=== PATIENT | male | born 1950 | race Caucasian/White ===

== ENCOUNTER 2020-11-04 21:17 | Emergency (ER) | payer MEDICARE, MEDICAID, SELFPAY ==
--- NOTE | ~2020-11-04 | CT_ITS ---
EXAMINATION: CT abdomen pelvis wo con DATE: 11/04/2020 22:32 INDICATION: Diarrhea. Abdominal pain. TECHNIQUE: Computed tomography (CT) of the abdomen and pelvis was performed without intravenous contr ast. Automated exposure control and iterative reconstruction technique were employed. The dose-length product was 642.21 mGy-cm. COMPARISON: Abdomen and pelvis 06/01/2005 FINDINGS: The visualized portions of the lung bases demonstrate mild atelectasis. No pleural effusion . The heart size is normal. There are coronary artery calcifications. There are pacer wires in right atrium and right ventricle. No pericardial effusion. Calcifications in the liver and spleen are consi stent with old granulomatous disease. There are cysts in the liver measuring up to [address] is decompressed. The pancreas, adrenal glands, and kidneys are normal. There is no urolithiasis. The prostate is mildly enlarged. There are no dilated loops of bowel. The appendix is normal. There a re no pathologically enlarged lymph nodes. There is no free intraperitoneal fluid. There is severe callum mbar spondylosis. IMPRESSION: 1. No etiology for the patient's symptoms. Reviewed, dictated and finalized at location A.
[2020-11-04 21:22] VITALS: BP 165/86; PULSE 60; RESP 16; TEMP 36.5; O2SAT 97
[2020-11-04 21:44] VITALS: BP 143/74; PULSE 59; RESP 18; O2SAT 97
[2020-11-04 22:19] LABS: Basophils Percent Auto 0.5 % (0.2-1.2); Eosinophils Absolute Auto 0.1 K/mm3 (0-0.3); Eosinophils Percent Auto 1.7 % (0-4.4); Hematocrit 38.6 % (42.0-52.0); Hemoglobin 13.3 g/dL (14.0-18.0); Immature Granulocyte Absolute 0.02 K/mm3 (0.00-0.031); Immature Granulocyte Percent A 0.3 % (0-0.5); Lymphocytes Absolute Auto 1.99 K/mm3 (0.9-3.2); Lymphocytes Percent Auto 30.7 % (18.3-44.2); Mean Corpuscular HGB Conc 34.5 g/dl (32-36); Mean Corpuscular Hemoglobin 33.9 pg (26-34); Mean Corpuscular Volume 98.5 fl (80-100); Mean Platelet Volume 9.8 fl (7.4-10.4); Monocytes Absolute Auto 0.4 K/mm3 (0.1-0.6); Monocytes Percent Auto 6.6 % (2.6-8.5); Neutrophils Absolute Auto 3.9 K/mm3 (1.3-6.7); Neutrophils Percent Auto 60.2 % (45.5-73.1); Platelet Count Result 157 k/mm3 (150-375); Red Blood Count 3.92 M/mm3 (4.6-6.20); Red Cell Distribution Width 12.4 % (11.5-14.5); White Blood Count 6.5 K/mm3 (4.5-10.0)
[2020-11-04 22:29] LABS: Add Urine Microscopic? YES; Appearance Urine Clear (Clear); Bilirubin Urine Negative (Negative); Blood Urine Negative (Negative); Color Urine Yellow (Yellow); Glucose Urine UA Negative (Negative); Ketones Urine Negative (Negative); Leukocyte Esterase Ur Negative LEU/UL (Negative); Mucus Urine Rare /lpf; Nitrate Urine Negative (Negative); Protein Urine Negative (Negative); Specific Grav Ur 1.013 (1.001-1.035); Squamous Epithelial Cell Urine Rare /hpf (Few); Urobilinogen Urine Negative mg/dL (<2.0); WBC Urine 0-3 /hpf
[2020-11-04 22:31] LABS: Lactic Acid Reflex 0.8 mmol/L (0.7-2.1)
[2020-11-04 22:33] LABS: Alanine Aminotransferase 15 U/L (4-50); Albumin Level 4.4 g/dL (3.5-5.1); Alkaline Phosphatase 69 U/L (38-126); Anion Gap 9 mmol/L (8-16); Aspartate Amino Transferase 28 U/L (17-59); Bilirubin,Total 0.3 mg/dL (0.2-1.3); Blood Urea Nitrogen 19 mg/dL (9-20); Calcium 8.7 mg/dL (8.4-10.2); Carbon Dioxide 24 mmol/L (22-30); Chloride 101 mmol/L (98-107); Estimated CRCL calculation 46 ml/min; Estimated Glomerular Filt Rate 43; Glucose 113 mg/dL (75-110); Lipase 60 U/L (23-300); Potassium 4.2 mmol/L (3.4-5.0); Sodium 134 mmol/L (137-145)
[2020-11-04 22:46] LABS: Creatine Kinase 87 U/L (55-170)
[2020-11-04] MEDS: LACTATED RINGERS 1,000 ML 999 ML IV CONT (22:58)
[2020-11-04] MEDS: PROMETHAZINE HCL 25 MG/ML AMPUL 12.5 MG IV PUSH (22:59)
[2020-11-04] MEDS: FAMOTIDINE 20 MG/2 ML VIAL IV PUSH (22:59)
[2020-11-04 23:03] VITALS: BP 173/83; PULSE 88; RESP 18; O2SAT 97
--- NOTE | 2020-11-04 23:04 | ED.GENADULT ---
HPI - General Adult General Chief complaint: Nausea/Vomiting/Diarrhea Stated complaint: diarrhea Time Seen by Provider: 11/04/20 21:35 Source: patient and RN notes reviewed Mode of arrival: EMS Limitations: no limitations History of Present Illness HPI narrative: Patient is a 70-year-old male who presents to emergency department for evaluation of diarrhea noted as liquid stools for the last 10 days took Imodium and has not had a bowel movement in the last 2 days patient notes no abdominal pain denies any fever chills nausea vomiting is currently on Bactrim for the last 3 days for urinary tract infection patient presents per EMS for evaluation patient lives at home by himself on arrival to emergency department patient does not appear distressed Related Data Home Medications Medication Instructions Recorded Confirmed acyclovir 400 mg tablet 400 mg PO DAILY 03/09/20 08/16/20 aspirin 81 mg tablet,delayed 81 mg PO DAILY 03/09/20 08/16/20 release clopidogrel 75 mg tablet 75 mg PO DAILY 03/09/20 08/16/20 esomeprazole magnesium 40 mg 40 mg PO DAILY 03/09/20 08/16/20 capsule,delayed release ferric citrate 210 mg iron tablet 210 mg PO TID 03/09/20 08/16/20 fluticasone 500 mcg-salmeterol 50 1 inh INHALATION Q12H 03/09/20 08/16/20 mcg/dose blistr powdr for inhalation mecobalamin (vitamin B12) 1,000 1,000 mcg SUBLINGUAL DAILY 03/09/20 08/16/20 mcg disintegrating tablet,sublingual metoclopramide HCl 10 mg tablet 10 mg PO Q6H PRN 03/09/20 08/16/20 sennosides 8.6 mg tablet 8.6 mg PO DAILY 03/09/20 08/16/20 tamsulosin 0.4 mg capsule 0.4 mg PO DAILY 03/09/20 08/16/20 timolol 0.5 % eye drops 1 drp OPHTHALMIC (EYE) Q12H 03/09/20 08/16/20 cholecalciferol (vitamin D3) 75 75 mcg PO DAILY 08/13/20 08/16/20 mcg (3,000 unit) tablet duloxetine 60 mg capsule,delayed 60 mg PO DAILY 08/13/20 08/16/20 release fluticasone 250 mcg-salmeterol 50 1 inh INHALATION BID 08/13/20 08/16/20 mcg/dose blistr powdr for inhalation ibuprofen 800 mg tablet 800 mg PO Q8H tablet 08/13/20 08/16/20 niacin 1,000 mg tablet,extended 1,000 mg PO QHS 08/13/20 08/16/20 release 24 hr paroxetine HCl 20 mg tablet 20 mg PO DAILY 08/13/20 08/16/20 sennosides 8.8 mg/5 mL oral syrup 5 ml PO QHS PRN 08/13/20 08/16/20 tamsulosin 0.4 mg capsule 0.4 mg PO DAILY 08/13/20 08/16/20 Allergies Allergy/AdvReac Type Severity Reaction Status Date / Time levofloxacin [From Levaquin] Allergy Severe Rash Verified 11/04/20 21:28 Aicaghj-Xyq-Yer Reductase Allergy Severe brings my Verified 11/04/20 21:28 Inhibitor levels up to 5000 atorvastatin Allergy Unknown Unknown Verified 11/04/20 21:28 fenofibrate Allergy Unknown Unknown Verified 11/04/20 21:28 Review of Systems Review of Systems: All systems reviewed & are unremarkable except as noted in HPI and below PMFSH Past Medical History Medical History COPD (chronic obstructive pulmonary disease) Heart disease Social History Social History Smoking packs per day: 0.25 Smoking cigarettes per day: 5.0 Years smoked: 50 Smoking pack-years: 12.50 Smoking status: Current some day smoker Tobacco type: cigarettes Second hand tobacco smoke exposure: No Alcohol intake: never Exam Narrative: Exam Narrative: GENERAL: Well-appearing, well-nourished, and in no acute distress. HEAD: Normocephalic, atraumatic. EYES: PERRLA and EOMI. ENT: Nares clear, no rhinorrhea or epistaxis. Mucous membranes moist. CHEST: Clear to auscultation. No respiratory distress. No wheezes rales or rhonchi HEART: Regular rate and rhythm. No murmur heard. Normal peripheral pulses. ABDOMEN: Soft, nontender, nondistended EXTREMITIES: Normal range of motion. No edema. SKIN: Warm, dry, no rash. NEURO: No focal deficits. Alert and oriented x3. Cranial nerves II through XII grossly intact PSYCH: Normal mood and affec
[2020-11-05 00:04] VITALS: BP 172/100; PULSE 78; RESP 18; O2SAT 97
== END 2020-11-05 00:04 | disposition home or self-care (01) ==
PROVIDERS: Emergency Medicine Emergency Medical Services; Emergency Provider Emergency Medicine; PCP Nurse Practitioner Family
DX: R19.7 Diarrhea, unspecified (principal); J44.9 Chronic obstructive pulmonary disease, unspecified; F17.210 Nicotine dependence, cigarettes, uncomplicated
CPT/HCPCS: 36415; 74176; 80053; 81001; 82550; 83605; 83690; 85025; 96361; 96374; 96375; 99284; J2550; J7120

== ENCOUNTER 2021-04-04 09:41 | Observation (INO) | payer MEDICARE, MEDICAID, SELFPAY ==
[2021-04-04] VITALS (12 sets, daily range): BP systolic 95–116; BP diastolic 49–66; PULSE 60–96; RESP 13–20; TEMP 36.3–37; O2SAT 95–100; BMI 24.0
--- NOTE | 2021-04-04 | ECHO_ITS ---
Patient Info Name: Mango Mcgill Age: 70 years : 1950 Gender: Male Ht: 75 in Wt: 192 lbs BSA: 2.15 m2 HR: 61 bpm BP: 101 / 58 mmHg Heart Rhythm: Paced Technical Quality: Fair Exam Date: 04/04/2021 4:16 PM Exam Location: [facility] Pulmonary Exam Room: 213 Patient Status: Outpatient Admit Date: 04/04/2021 Staff Ordering Physician: Bee Melendez NP Relief Pilot: Kay Osorio RDCS Attending Provider: Todd Meadows MD Referring Physician: Al BENSON; Exam Type: CA echo doppler color flow Study Info Indications - chest pain ppm cad stents Complete two-dimensional, color flow and Doppler transthoracic echocardiogram is performed. Summary 1. Left ventricular chamber dimension is normal. 2. Left ventricular systolic function is normal, estimated at 65-70%. 3. There is mildly increased left ventricular wall thickness. 4. The left ventricular diastolic function is grade I diastolic dysfunction. 5. Left atrial chamber dimension is mildly enlarged. 6. There is trace mitral valve regurgitation. 7. There is trace tricuspid valve regurgitation. 8. No pulmonary hypertension, estimated pulmonary arterial systolic pressure is 28 mmHg. 9. Probable atrial paced rhythm. Left Ventricle Left ventricular chamber dimension is normal. Left ventricular systolic function is normal, estimated at 65-70%. There is mildly increased left ventricular wall thickness. The left ventricular diastolic function is grade I diastolic dysfunction. Right Ventricle Right ventricular chamber dimension is normal. Right ventricular systolic function is normal. Linear artifact in right ventricle suggestive of catheter(s), pacemaker lead(s), or ICD lead(s). Left Atria Left atrial chamber dimension is mildly enlarged. Right Atria Right atrial chamber dimension is normal. Linear artifact in the right atrium suggestive of catheter(s), pacemaker lead(s), or ICD lead(s). Aortic Valve The aortic valve is not well visualized. There is mild aortic valve sclerosis. There is no aortic valve stenosis. There is no aortic valve regurgitation. Pulmonic Valve The pulmonic valve is not well visualized. Mitral Valve The mitral valve has normal leaflets. There is trace mitral valve regurgitation. The mitral valve annulus is mildly calcified. Tricuspid Valve The tricuspid valve leaflets are normal. There is trace tricuspid valve regurgitation. No pulmonary hypertension, estimated pulmonary arterial systolic pressure is 28 mmHg. Pericardium/Pleural The pericardium appears normal. There is no pericardial effusion. Inferior Vena Cava Normal inferior vena cava with >50% collapse upon inspiration consistent with normal right atrial pressure, 5 mmHg. Aorta The aortic root size at the sinus of Valsalva is normal. There is mild aortic atherosclerosis. Left Ventricular Outflow Tract Name Value Normal LVOT 2D LVOT Diameter 2.1 cm LVOT Doppler LVOT Peak Gradient 5 mmHg LVOT Mean Gradient 3 mmHg LVOT VTI 20 cm
--- NOTE | ~2021-04-04 | XR_ITS ---
EXAMINATION: XR lumbar spine 2-3V DATE: 04/05/2021 13:38 INDICATION: Back pain post fall TECHNIQUE: Anteroposterior and lateral views of the lumbar spine, and cone-down lateral view of the l umbosacral junction were obtained. COMPARISON: 11/27/2007 FINDINGS: 12 degrees dextroscoliosis between L1 and L3 and 10 degree levoscoliosis. L3 and L5. Sagittal alignme nt is normal. Vertebral body heights are normal. Moderate disc height loss at L1-L2, L3-L4, L5-S1 and at the right side of L4-L5. Mild to moderate disc height loss at L3-L4. Mild disc height loss at T10 -T11 and T11-T12. Moderate-sized endplate osteophytes throughout the lumbar spine. Multilevel moderat e lumbar facet osteoarthritis. Mild osteoarthritis at the bilateral sacroiliac joints. Sacral arches are intact. Visualized lung bases are clear with no pleural effusion. Small portions of cardiac pacem alix leads are seen at the inferior aspect of the heart. IMPRESSION: 1. Mild S-shaped scoliosis of the lumbar spine with moderate spondylosis. Reviewed, dictated and finalized at location A. S COMMUNICATIONS MANAGER
--- NOTE | ~2021-04-04 | XR_ITS ---
EXAMINATION:XR_CERV2-3V_CR DATE: 04/05/2021 13:38 INDICATION: Neck pain post fall TECHNIQUE: AP, lateral, lateral swimmers and odontoid views of the cervical spine are provided. COMPARISON: 11/27/2007 FINDINGS: Straightening of the normal cervical lordosis. Anterior fusion at C3-C4. Unfused vertebral body heigh ts are normal. Moderate disc height loss at C5-C6, mild to moderate disc height loss at C4-C5 and C6- C7. Moderate to severe uncovertebral osteoarthritis at each of these levels. Is also multilevel bilat eral mild to moderate facet osteoarthritis. Odontoid is intact. Normal atlantoaxial interval. Preve rtebral soft tissues are normal. Visualized bilateral upper lung zones are clear. Dual-lead cardiac p acemaker with leads extending into the superior vena cava and below the caudal margin of the field-of -view. IMPRESSION: 1. Moderate cervical spondylosis with anterior fusion at C3-C4. Reviewed, dictated and finalized at location A. MIXER OPERATOR
--- NOTE | ~2021-04-04 | US_ITS ---
EXAMINATION: US abdomen limited DATE: 04/05/2021 10:13 INDICATION: Nausea and vomiting. TECHNIQUE: Multiple grayscale and Doppler ultrasound images of the abdomen were obtained. COMPARISON: CT abdomen and pelvis 11/04/2020 FINDINGS: The visualized portions of the head, body, and tail of the pancreas are normal. There is a 9 mm cyst in the liver. No liver surface nodularity. There is normal flow in main portal vein. The ga llbladder is contracted. No gallstones or sonographic Garza sign. The common duct is normal and quincy ures 6 mm. IMPRESSION: 1. No etiology for the patient's symptoms. Reviewed, dictated and finalized at location B. TRUCTION PLUMBER
--- NOTE | ~2021-04-04 | CT_ITS ---
EXAMINATION: CT brain wo con DATE: 04/04/2021 10:38 INDICATION: Hypertension. Blurred vision. TECHNIQUE: Computed tomography (CT) of the head was performed without intravenous contrast. Sagittal and coronal reconstructions were performed. The mA was adjusted according to patient size. Iterative reconstruction technique was employed. The dose-length product was 681.00 mGy-cm. COMPARISON: head CT dated 10/25/2010 FINDINGS: No acute intracranial hemorrhage, acute infarction or abnormal extra axial fluid collection. There is mild scattered white matter hypoattenuation consistent with chronic small vessel ischemic disease. S ymmetric prominence of the sulci consistent with mild age-appropriate diffuse cerebral volume loss. V entricles are normal and symmetric. No mass/mass effect. Mild mucosal thickening in the bilateral eth moid and maxillary sinuses. The orbits and mastoid air cells are normal. IMPRESSION: 1. Normal aging brain. No acute intracranial process. Reviewed, dictated and finalized at location A. SH REMOVER
--- NOTE | ~2021-04-04 | US_ITS ---
EXAMINATION: US renal BI DATE: 04/05/2021 10:13 INDICATION: Acute kidney injury. TECHNIQUE: Multiple ultrasound grayscale images of the kidneys were obtained. COMPARISON: CT abdomen and pelvis 11/04/2020 FINDINGS: The right kidney measures 11.4 x 5.0 x 6.8 cm. The left kidney measures 10.9 x 6.1 x 6.7 cm. The kidn eys demonstrate normal parenchymal echogenicity. There is no hydronephrosis. The bladder is normal. IMPRESSION: 1. Normal kidneys. No hydronephrosis. Reviewed, dictated and finalized at location B. BOX CHECKER
--- NOTE | ~2021-04-04 | XR_ITS ---
EXAMINATION: XR chest 1V portable DATE: 04/04/2021 11:03 INDICATION: Chest pain. Syncope. Blurred vision. TECHNIQUE: frontal view of the chest was obtained. COMPARISON: None FINDINGS: There is increased lucency with some architectural distortion in the upper lung zones consistent with emphysema. No focal airspace opacities, pulmonary edema, pleural effusion or pneumothorax. The cardi omediastinal silhouette is normal. Dual lead pacemaker seen with leads projecting over the expected l ocations of the right atrium and right ventricle. Coronary artery stenting. IMPRESSION: 1. Emphysema. No acute cardiopulmonary disease. Reviewed, dictated and finalized at location A. L SORTER
--- NOTE | 2021-04-04 10:13 | ECG_ITS ---
Measurements Intervals [place] Rate: 86 P: 108 VA: 191 QRS: -68 QRSD: 116 T: 74 QT: 352 QTc: 421 Interpretive Statements SINUS RHYTHM LEFT ANTERIOR FASCICULAR BLOCK ABNORMAL ECG Electronically Signed On 04-04-2021 10:15:33 MATHEMATICS TEACHER by Matthieu Lange D.O.
[2021-04-04 10:18] LABS: Basophils Percent Auto 0.6 % (0.2-1.2); Eosinophils Absolute Auto 0.1 K/mm3 (0-0.3); Eosinophils Percent Auto 1.5 % (0-4.4); Hematocrit 33.6 % (42.0-52.0); Hemoglobin 12.6 g/dL (14.0-18.0); Immature Granulocyte Absolute 0.02 K/mm3 (0.00-0.031); Immature Granulocyte Percent A 0.3 % (0-0.5); Lymphocytes Absolute Auto 2.61 K/mm3 (0.9-3.2); Lymphocytes Percent Auto 36.1 % (18.3-44.2); Mean Corpuscular HGB Conc 37.5 g/dl (32-36); Mean Corpuscular Hemoglobin 35.4 pg (26-34); Mean Corpuscular Volume 94.4 fl (80-100); Mean Platelet Volume 8.9 fl (7.4-10.4); Monocytes Absolute Auto 0.6 K/mm3 (0.1-0.6); Monocytes Percent Auto 8.4 % (2.6-8.5); Neutrophils Absolute Auto 3.8 K/mm3 (1.3-6.7); Neutrophils Percent Auto 53.1 % (45.5-73.1); Platelet Count Result 229 k/mm3 (150-375); Red Blood Count 3.56 M/mm3 (4.6-6.20); Red Cell Distribution Width 11.3 % (11.5-14.5); White Blood Count 7.2 K/mm3 (4.5-10.0)
[2021-04-04 10:25] LABS: INR 0.9; Prothrombin Time 12.5 Seconds (11.1-14.7)
[2021-04-04 10:27] LABS: Alanine Aminotransferase 18 U/L (4-50); Albumin Level 4.6 g/dL (3.5-5.1); Alkaline Phosphatase 68 U/L (38-126); Anion Gap 11 mmol/L (8-16); Aspartate Amino Transferase 27 U/L (17-59); Bilirubin,Total 0.7 mg/dL (0.2-1.3); Blood Urea Nitrogen 20 mg/dL (9-20); Calcium 9.4 mg/dL (8.4-10.2); Carbon Dioxide 22 mmol/L (22-30); Chloride 95 mmol/L (98-107); Estimated CRCL calculation 46 ml/min; Estimated Glomerular Filt Rate 43; Glucose 103 mg/dL (65-110); Lipase 111 U/L (23-300); Potassium 3.7 mmol/L (3.4-5.0); Sodium 128 mmol/L (137-145)
--- NOTE | 2021-04-04 10:30 | ED.GENADULT ---
HPI - General Adult General Chief complaint: Unspecified Stated complaint: chest pain Time Seen by Provider: 04/04/21 10:04 Source: patient Mode of arrival: ambulatory Limitations: no limitations History of Present Illness HPI narrative: Patient is a 70-year-old male complain of chest pain, midsternal, 7 out of 10, described as tightness, nonradiating, intermittent started 1 week ago. Patient complaining of dizziness, nausea, and elevated blood pressure that is been ongoing for the past few months. Related Data Home Medications Medication Instructions Recorded Confirmed acyclovir 400 mg tablet 400 mg PO DAILY 03/09/20 08/16/20 aspirin 81 mg tablet,delayed 81 mg PO DAILY 03/09/20 08/16/20 release clopidogrel 75 mg tablet 75 mg PO DAILY 03/09/20 08/16/20 esomeprazole magnesium 40 mg 40 mg PO DAILY 03/09/20 08/16/20 capsule,delayed release ferric citrate 210 mg iron tablet 210 mg PO TID 03/09/20 08/16/20 fluticasone 500 mcg-salmeterol 50 1 inh INHALATION Q12H 03/09/20 08/16/20 mcg/dose blistr powdr for inhalation mecobalamin (vitamin B12) 1,000 1,000 mcg SUBLINGUAL DAILY 03/09/20 08/16/20 mcg disintegrating tablet,sublingual metoclopramide HCl 10 mg tablet 10 mg PO Q6H PRN 03/09/20 08/16/20 sennosides 8.6 mg tablet 8.6 mg PO DAILY 03/09/20 08/16/20 tamsulosin 0.4 mg capsule 0.4 mg PO DAILY 03/09/20 08/16/20 timolol 0.5 % eye drops 1 drp OPHTHALMIC (EYE) Q12H 03/09/20 08/16/20 cholecalciferol (vitamin D3) 75 75 mcg PO DAILY 08/13/20 08/16/20 mcg (3,000 unit) tablet fluticasone 250 mcg-salmeterol 50 1 inh INHALATION BID 08/13/20 08/16/20 mcg/dose blistr powdr for inhalation niacin 1,000 mg tablet,extended 1,000 mg PO QHS 08/13/20 08/16/20 release 24 hr sennosides 8.8 mg/5 mL oral syrup 5 ml PO QHS PRN 08/13/20 08/16/20 tamsulosin 0.4 mg capsule 0.4 mg PO DAILY 08/13/20 08/16/20 Allergies Allergy/AdvReac Type Severity Reaction Status Date / Time levofloxacin [From Levaquin] Allergy Severe Rash Verified 12/08/20 15:22 Tuqgeud-SHV-DaC Reductase Allergy Severe brings my Verified 12/08/20 15:22 Inhibitor levels up [Etambek-Meu-Ljv Reductase to 5000 Inhibitor] atorvastatin Allergy Unknown Unknown Verified 12/08/20 15:22 fenofibrate Allergy Unknown Unknown Verified 12/08/20 15:22 Review of Systems Review of Systems: All systems reviewed & are unremarkable except as noted in HPI and below Constitutional: Constitutional: Denies body ache(s), Denies chills, Denies excessive sweating, Denies fatigue, Denies fever(s), Denies headache(s), Denies lethargy, Denies malaise, Denies weakness and Denies weight loss Eyes: Eyes: Denies blurry vision, Denies change in vision and Denies loss of vision ENT: Denies dizziness, Denies ear discharge, Denies headache(s), Denies lip swelling, Denies epistaxis, Denies nasal congestion, Denies neck pain, Denies throat swelling and Denies tongue swelling Cardiovascular: Cardiovascular: Denies diaphoresis, Denies rapid heart rate, Denies edema, Denies irregular heart rhythm, Denies lightheadedness, Denies palpitations, Denies dyspnea and Denies dyspnea on exertion Respiratory: Respiratory: Denies chest congestion, Denies cough, Denies hemoptysis, Denies dyspnea and Denies dyspnea on exertion Gastrointestinal: Gastrointestinal: Denies abdominal pain, Denies melena, Denies hematochezia, Denies diarrhea, Denies vomiting and Denies hematemesis Musculoskeletal: Musculoskeletal: Denies abnormal gait, Denies deformity, Denies joint swelling, Denies limited range of motion, Denies neck pain and Denies numbness Neurologic: Denies Abnormal speech present, Denies abnormal gait, Denies confusion, Denies headache(s), Denies focal weakness, Denies loss of vision, Denies numbness, Denies Other visual disturbances, Denies Sensory deficit (Neuro) and Denies weakness Psychiatric: Psychiatric: Denies confusion, Denies depression, Denies auditory hallucinations, Denies homicidal ideation an
[2021-04-04 10:39] LABS: Troponin I < 0.012 ng/mL (0.000-0.034)
[2021-04-04 11:04] LABS: Add Urine Microscopic? NO; Appearance Urine Clear (Clear); Bilirubin Urine Negative (Negative); Blood Urine Negative (Negative); Color Urine Yellow (Yellow); Glucose Urine UA Negative (Negative); Ketones Urine Negative (Negative); Leukocyte Esterase Ur Negative LEU/UL (Negative); Nitrate Urine Negative (Negative); Protein Urine Negative (Negative); Specific Grav Ur 1.012 (1.001-1.035); Urobilinogen Urine Negative mg/dL (<2.0)
[2021-04-04] MEDS: ASPIRIN 81 MG CHEWABLE TABLET 324 MG PO (13:11)
[2021-04-04 13:50] LABS: Troponin I < 0.012 ng/mL (0.000-0.034)
[2021-04-04 13:52] LABS: Partial Thromboplastin Time 31.7 SECONDS (22.3-36.8)
--- NOTE | 2021-04-04 15:39 | PM.IMHP ---
H&P: HPI History of Present Illness Date/Time: 04/04/21 15:39 this is a 70-year-old disabled male patient who lives home alone. The patient stated he is mostly bedbound. The patient came to the hospital with multiple complaints. The patient stated that he typically goes to [facility]. The patient has had multiple problems and states that he is not able to get out of the house to take care of that. The patient stated that he had a nausea and vomiting approximately 3 days ago. The patient stated that he has a gallbladder issue and cannot get his gallbladder out at this time. He stated he was recently at [facility] and they explained him that they would not take out his gallbladder until he started having problems he has known gallstones. The patient also complained about having some bloody stools in the recent past but is no longer having any bloody stools. The patient came in today complaining of chest pain as well as 7/10 that he described as tightness and nonradiating intermittent. The patient stated that he gets dizzy when he gets up in his blood pressure is been up and down in the has orthostatic blood pressure. The patient states that he has a history of passing out when he stands up. The patient is also seeing Neurology. He has chronic back pain. The patient has been complaining of severe headaches recently. Head CT was performed here today that shows nothing acute. The CT was read as normal aging brain. No acute intracranial process. The patient was given an aspirin. H&H is 12.6 and 33.6. His sodium is now 128 today. The patient stated that he had low sodium at [facility] on that they had overcorrected then had to give him medicine for the over-correction. He stated they corrected his sodium too rapidly. But since the patient has been having the nausea vomiting and diarrhea sodium is now 128. He is not noticing any blood today. Patient has chronic renal failure and his creatinine is 1.6 today. His GFR is 43. Patient's troponins are negative x2. EKG was read as sinus rhythm left anterior fascicular block. The patient has a history having a pacemaker. He tells me he that he has had 12 stents in the past. The patient is being admitted to observation status on the date of service of 04/04/2021. Chief Complaint: Chest pain Review of Systems Review of Systems: All systems reviewed & are unremarkable except as noted in HPI and below Constitutional: Constitutional: Reports as per HPI and Reports no additional constitutional complaints Eyes: Eyes: Reports as per HPI and Reports no additional eye complaints ENT: Reports system reviewed and no additional complaints, except as documented and Reports Normal hearing present Cardiovascular: Cardiovascular: Reports no additional cardiovascular complaints Respiratory: Respiratory: Reports no additional respiratory complaints and Reports no additional respiratory complaints Gastrointestinal: Gastrointestinal: Reports as per HPI and Reports no additional gastrointestinal complaints Musculoskeletal: Musculoskeletal: Reports no additional musculoskeletal complaints Integumentary/Breasts: Skin/Breast: Reports system reviewed and no additional complaints, except as docu and Reports as per HPI Neurologic: Reports system reviewed and no additional complaints, except as documented, Reports as per HPI and Reports Normal hearing present Psychiatric: Psychiatric: Reports no additional psychiatric complaints and Reports as per HPI Endocrine: Endocrine: Reports no additional endocrine complaints Hematologic/Lymphatic: Hematologic/Lymphatic: Reports no additional hematologic/lymphatic complaints Allergic/Immunologic: Allergic/Immunologic: Reports no additional allergic/immunologic complaints [facility] [place] Past Medical History Medical History (Updated 04/04/21 @ 16:02 by Bee Melendez NP) Anxiety and depression BPH (benign prostatic hyperplasia) CAD (coronary artery
--- NOTE | 2021-04-04 15:47 | PC.NURSE ---
This patient, Mango Mcgill Sr., was admitted to IMU Room 213-01. Patient/family oriented to hospital policies and general routines including ID bracelet, bed and alarms, visiting hours, pain management, procedures, bathroom and other care routines, personal items, smoking policy, room service/diet, and visiting hours. Information on how to activate the Rapid Response Team has been discussed. Patient/Family are encouraged to report perceived risks to care and to ask questions if they do not understand what they are told or what they should do.
--- NOTE | 2021-04-04 15:53 | PCRCNOTE ---
Addendum entered by Sultana Hernandez, ROVING CARRIER 04/04/21 15:55: PROVIDER AND RN AWARE. Original Note: PT. WISHES TO NOT USE A CPAP WHILE HERE IN THE HOSPITAL.
--- NOTE | 2021-04-04 16:49 | PM.CNNEP ---
Assessment and Plan Assessment and plan (1) Hyponatremia: Code(s): E87.1 - Hypo-osmolality and hyponatremia Status: Acute Assessment and Plan: acute versus chronic versus acute on chronic??? risk factors include COPD + smoking, narcotic use, and possibly SSRI use (paroxetine + duloxetine) apparent history of overcorrection at another hospital -- old records have been requested prior to further testing, would review records first he may be at baseline with regard to his sodium level stable at this time follow trend for now (2) Stage 3b chronic kidney disease: Code(s): N18.32 - Chronic kidney disease, stage 3b Status: Acute Assessment and Plan: presumed baseline around 1.6mg/dl suspect due to hypertension, ARMEN, vascular disease, and age (3) Chest pain: Code(s): R07.9 - Chest pain, unspecified Status: Acute Assessment and Plan: as noted on admission reportedly with CAD ( 12 stents ) follow troponins and symptoms (4) Hypertension: Code(s): I10 - Essential (primary) hypertension Status: Chronic Assessment and Plan: reasonable control at this time follow trend of hemodynamics (5) COPD (chronic obstructive pulmonary disease): Code(s): J44.9 - Chronic obstructive pulmonary disease, unspecified Status: Chronic Assessment and Plan: relatively stable smoking cessation recommended continue supportive therapy Will continue to follow. History of Present Illness Reason for Consult Consult date: 04/04/21 Reason for consult: chronic renal failure and hyponatremia Chief Complaint Chief complaint: Chest pain History of Present Illness Narrative: The patient is a 70-year-old male with a past medical history as outlined below who presented to [facility] Emergency room with complaints of chest pain. The patient states that he developed chest pain earlier today rated seven on a 10 and described as a tightness . The pain was nonradiating and intermittent. However, on top of the chest pain, he had other multiple complaints including nausea and vomiting for the past three days, dizziness, headache and chronic back pain as well as syncope. Workup and evaluation in the emergency room demonstrated the patient to be hemodynamically stable but complaining of the multiple issues as mentioned above. A CT scan of his head was done that demonstrated no acute intracranial process and routine blood test demonstrated normal CBC with mild anemia and his chemistry was significant for an elevated creatinine consistent with his known history of kidney disease as well as hyponatremia with a sodium 128. on further questioning, he apparently was recently hospitalized at [facility] for hyponatremia that was apparently overcorrected and but the specifics are not known. His EKG in the emergency room was unremarkable for ST elevation or depression and his initial troponins were negative x2. He reportedly has a history of coronary artery disease and given his constellation of symptoms upon presentation, it was sided to admit the patient for observation and further treatment /evaluation. Renal consultation was requested due to his chronic kidney disease as well as hyponatremia. Unfortunately, I am unclear what his baseline sodium level normally runs as well as where his kidney function normally is at baseline. However since his admission here to [facility], his creatinine has been relatively stable at 1.6 mg/dL and his sodium has been stable in the range of 128 millimoles per L. With regard to risk factors for hyponatremia, he does have extensive history of smoking as well as known COPD, high use of narcotics for pain control, and use of SSRIs for his underlying psychiatric issues / problems. Currently, he does not appear to be in acute distress. Review of Systems Review of Systems: As per HPI. PM
[2021-04-04 17:58] LABS: Troponin I 0.013 ng/mL (0.000-0.034)
[2021-04-04] MEDS: SODIUM CHLORIDE 0.9% IV 1,000 ML 50 ML IV CONT (18:30)
[2021-04-04] MEDS: ALPRAZolam (*CRX) 0.5 MG TABLET 1 MG PO ×2 (18:30→23:03)
[2021-04-04] MEDS: oxyCODONE HCL (*CRX) 5 MG TAB IR 30 MG PO (20:24)
[2021-04-04] MEDS: METOCLOPRAMIDE HCL 10 MG TABLET PO (20:36)
[2021-04-04] MEDS: FLUTICASONE/SALMETEROL 230-21 MCG INHALER 1 PUFF 2 PUFF INHALATION (21:41)
--- NOTE | 2021-04-04 21:43 | PCRCNOTE ---
20:00 advair administered. 20:00 albuterol not administered. Pt stated that he had already used his personal albuterol inhaler.
[2021-04-04 22:15] LABS: Anion Gap 6 mmol/L (8-16); Blood Urea Nitrogen 24 mg/dL (9-20); Calcium 9.1 mg/dL (8.4-10.2); Carbon Dioxide 25 mmol/L (22-30); Chloride 97 mmol/L (98-107); Estimated CRCL calculation 42 ml/min; Estimated Glomerular Filt Rate 40; Glucose 96 mg/dL (65-110); Potassium 4.3 mmol/L (3.4-5.0); Sodium 128 mmol/L (137-145)
[2021-04-04] MEDS: QUEtiapine FUMARATE 100 MG TABLET 300 MG PO (22:53)
[2021-04-04] MEDS: RANOLAZINE 500 MG TAB.ER.12H 1000 MG PO (22:53)
[2021-04-04 23:57] LABS: Sodium Urine Random 30 meq/L
[2021-04-05] VITALS (18 sets, daily range): BP systolic 87–118; BP diastolic 50–66; PULSE 60–78; RESP 20–22; TEMP 36.2–36.8; O2SAT 96–100
[2021-04-05 05:20] LABS: Basophils Absolute Auto 0.1 K/mm3 (0.0-0.1); Basophils Percent Auto 0.8 % (0.2-1.2); Eosinophils Absolute Auto 0.1 K/mm3 (0-0.3); Eosinophils Percent Auto 1.9 % (0-4.4); Hemoglobin 11.3 g/dL (14.0-18.0); Immature Granulocyte Absolute 0.01 K/mm3 (0.00-0.031); Immature Granulocyte Percent A 0.2 % (0-0.5); Lymphocytes Absolute Auto 2.68 K/mm3 (0.9-3.2); Lymphocytes Percent Auto 42.6 % (18.3-44.2); Mean Corpuscular HGB Conc 36.5 g/dl (32-36); Mean Corpuscular Hemoglobin 34.9 pg (26-34); Mean Corpuscular Volume 95.7 fl (80-100); Mean Platelet Volume 8.9 fl (7.4-10.4); Monocytes Absolute Auto 0.4 K/mm3 (0.1-0.6); Neutrophils Percent Auto 47.5 % (45.5-73.1); Platelet Count Result 199 k/mm3 (150-375); Red Blood Count 3.24 M/mm3 (4.6-6.20); Red Cell Distribution Width 11.3 % (11.5-14.5); White Blood Count 6.3 K/mm3 (4.5-10.0)
[2021-04-05 05:26] LABS: Alanine Aminotransferase 16 U/L (4-50); Albumin Level 3.9 g/dL (3.5-5.1); Alkaline Phosphatase 53 U/L (38-126); Anion Gap 6 mmol/L (8-16); Aspartate Amino Transferase 23 U/L (17-59); Bilirubin,Total 0.5 mg/dL (0.2-1.3); Blood Urea Nitrogen 23 mg/dL (9-20); CRP < 0.5 mg/dL (<1.0); Calcium 9.3 mg/dL (8.4-10.2); Carbon Dioxide 26 mmol/L (22-30); Chloride 97 mmol/L (98-107); Estimated CRCL calculation 51 ml/min; Estimated Glomerular Filt Rate 50; Glucose 104 mg/dL (65-110); Lactate Dehydrogenase 287 U/L (313-618); Lipase 77 U/L (23-300); Magnesium 1.8 mg/dL (1.6-2.3); Potassium 4.3 mmol/L (3.4-5.0); Sodium 129 mmol/L (137-145)
[2021-04-05 06:01] LABS: Thyroid Stimulating Hormone Reflex 0.953 uIU/mL (0.465-4.68)
[2021-04-05] MEDS: ASPIRIN 81 MG ENTERIC TABLET PO (08:54)
[2021-04-05] MEDS: FAMOTIDINE 20 MG TABLET 40 MG PO (08:54)
[2021-04-05] MEDS: EZETIMIBE 10 MG TABLET PO (08:54)
[2021-04-05] MEDS: TAMSULOSIN HCL 0.4 MG CAPSULE PO (08:55)
[2021-04-05] MEDS: METOCLOPRAMIDE HCL 10 MG TABLET PO (08:55)
[2021-04-05] MEDS: CLOPIDOGREL BISULFATE 75 MG TABLET PO (08:55)
[2021-04-05] MEDS: OMEGA 3 POLYUNSAT FATTY ACIDS 1 GM CAP 2 GM PO (08:55)
[2021-04-05] MEDS: RANOLAZINE 500 MG TAB.ER.12H 1000 MG PO (08:55)
[2021-04-05] MEDS: ALBUTEROL SULFATE (*SP) AEROSOL 1 PUFF INHALATION ×3 (09:23→16:07)
[2021-04-05] MEDS: FLUTICASONE/SALMETEROL 230-21 MCG INHALER 1 PUFF 2 PUFF INHALATION (09:23)
--- NOTE | 2021-04-05 10:36 | P.PNNP_ITS ---
Progress Note: A&P Assessment and Plan (1) Hyponatremia: Code(s): E87.1 - Hypo-osmolality and hyponatremia Status: Acute Assessment and Plan: * acute versus chronic versus acute on chronic??? * relatively stable since admission without any specific intervention * risk factors include COPD + smoking, narcotic use, and possibly SSRI use (paroxetine + duloxetine) * apparent history of overcorrection at another hospital -- old records have been requested * prior to further testing, would review records first as he may have already had an extensive work-up/testing * he may be at baseline with regard to his sodium level * stable at this time * follow trend for now (2) Stage 3b chronic kidney disease: Code(s): N18.32 - Chronic kidney disease, stage 3b Status: Acute Assessment and Plan: * unknown baseline creatinine (review records when available) * 1.6mg/dl on admission, 1.4mg/dl by AM labs * suspect due to hypertension, ARMEN, vascular disease, and age (3) Chest pain: Code(s): R07.9 - Chest pain, unspecified Status: Acute Assessment and Plan: * as noted on admission * reportedly with CAD ( 12 stents ) * follow troponins and symptoms (4) Hypertension: Code(s): I10 - Essential (primary) hypertension Status: Chronic Assessment and Plan: * reasonable control at this time * follow trend of hemodynamics (5) COPD (chronic obstructive pulmonary disease): Code(s): J44.9 - Chronic obstructive pulmonary disease, unspecified Status: Chronic Assessment and Plan: * relatively stable * smoking cessation recommended * continue supportive therapy Will continue to follow. Subjective Date/time seen: 04/05/21 10:36 No apparent issues or problems voiced at this time; no events overnight or earlier this AM; renal function as well as sodium are stable if not improved. Exam Narrative: General: WD/WN male in NAD Heart: normal S1 and S2; no rub Lungs: clear to auscultation Abdomen: soft, nontender, nondistended, positive bowel sounds Extremities: no cyanosis or clubbing; no edema Skin: warm and dry Objective Data Vital Signs Vital Signs: Vital Signs Temp Pulse Resp BP Pulse Ox 04/05/21 10:00 64 04/05/21 09:25 96 04/05/21 08:15 36.2 C L 61 20 110/66 100 04/05/21 08:00 69 96 04/05/21 06:00 64 04/05/21 04:00 36.8 C 60 20 98/50 L 96 04/05/21 02:00 61 04/05/21 00:00 60 04/04/21 23:01 36.3 C L 60 20 109/49 L 97 04/04/21 22:00 60 04/04/21 21:46 96 96 04/04/21 20:50 103/62 04/04/21 20:00 36.7 C 60 20 105/60 98 04/04/21 18:00 65 04/04/21 16:50 112/58 L 04/04/21 15:56 112/58 L 04/04/21 15:38 37.0 C 60 16 112/58 L 100 04/04/21 15:14 60 16 95/62 L 95 04/04/21 13:09 60 19 104/56 L 100 Intake/Output Intake/Output: Intake & Output 04/02/21 04/03/21 04/04/21 04/05/21 23:59 23:59 23:59 23:59 Intake Total 780 480 Output Total 1350 Balance 780 -870 Meds/Results Medications: Active Medications Generic Name Dose Route Start Last Admin T
--- NOTE | 2021-04-05 10:36 | PM.PNNEP ---
Progress Note: A&P Assessment and Plan (1) Hyponatremia: Code(s): E87.1 - Hypo-osmolality and hyponatremia Status: Acute Assessment and Plan: acute versus chronic versus acute on chronic??? relatively stable since admission without any specific intervention risk factors include COPD + smoking, narcotic use, and possibly SSRI use (paroxetine + duloxetine) apparent history of overcorrection at another hospital -- old records have been requested prior to further testing, would review records first as he may have already had an extensive work-up/testing he may be at baseline with regard to his sodium level stable at this time follow trend for now (2) Stage 3b chronic kidney disease: Code(s): N18.32 - Chronic kidney disease, stage 3b Status: Acute Assessment and Plan: unknown baseline creatinine (review records when available) 1.6mg/dl on admission, 1.4mg/dl by AM labs suspect due to hypertension, ARMEN, vascular disease, and age (3) Chest pain: Code(s): R07.9 - Chest pain, unspecified Status: Acute Assessment and Plan: as noted on admission reportedly with CAD ( 12 stents ) follow troponins and symptoms (4) Hypertension: Code(s): I10 - Essential (primary) hypertension Status: Chronic Assessment and Plan: reasonable control at this time follow trend of hemodynamics (5) COPD (chronic obstructive pulmonary disease): Code(s): J44.9 - Chronic obstructive pulmonary disease, unspecified Status: Chronic Assessment and Plan: relatively stable smoking cessation recommended continue supportive therapy Will continue to follow. Subjective Date/time seen: 04/05/21 10:36 No apparent issues or problems voiced at this time; no events overnight or earlier this AM; renal function as well as sodium are stable if not improved. Exam Narrative: General: WD/WN male in NAD Heart: normal S1 and S2; no rub Lungs: clear to auscultation Abdomen: soft, nontender, nondistended, positive bowel sounds Extremities: no cyanosis or clubbing; no edema Skin: warm and dry Objective Data Vital Signs Vital Signs: Vital Signs Temp Pulse Resp BP Pulse Ox 04/05/21 10:00 64 04/05/21 09:25 96 04/05/21 08:15 36.2 C L 61 20 110/66 100 04/05/21 08:00 69 96 04/05/21 06:00 64 04/05/21 04:00 36.8 C 60 20 98/50 L 96 04/05/21 02:00 61 04/05/21 00:00 60 04/04/21 23:01 36.3 C L 60 20 109/49 L 97 04/04/21 22:00 60 04/04/21 21:46 96 96 04/04/21 20:50 103/62 04/04/21 20:00 36.7 C 60 20 105/60 98 04/04/21 18:00 65 04/04/21 16:50 112/58 L 04/04/21 15:56 112/58 L 04/04/21 15:38 37.0 C 60 16 112/58 L 100 04/04/21 15:14 60 16 95/62 L 95 04/04/21 13:09 60 19 104/56 L 100 Intake/Output Intake/Output: Intake & Output 04/02/21 04/03/21 04/04/21 04/05/21 23:59 23:59 23:59 23:59 Intake Total 780 480 Output Total 1350 Balance 780 -870 Meds/Results Medications: Active Medications Generic Name Dose Route Start Last Admin Trade Name Freq PRN Reason Stop Dose Admin Albuterol 1 puff 04/04/21 20:00 04/05/21 09:23 Albuterol Sulfate (*Sp) Aerosol 1 Puff INHALATION 1 puff QIDRT [facility] Administration Alprazolam 1 mg 04/04/21 17:26 04/04/21 23:03 Alprazolam (*Crx) 0.5 Mg Tablet PO 1 mg TID PRN Administration Anxiety Aspirin 81 mg 04/05/21 09:00 04/05/21 08:54 Aspirin 81 Mg Enteric Tablet PO 81 mg DAILY [facility] Administration Carisoprodol 350 mg 04/05/21 22:00 Carisoprodol (*Crx) 350 Mg Tablet PO Q8HR [facility] Clopidogrel Bisulfate 75 mg 04/05/21 09:00 04/05/21 08:55 Clopidogrel Bisulfate 75 Mg Tablet PO 75 mg DAILY [facility] Administration Ezetimibe 10 mg 04/05/21 09:00 04/05/21 08:54 Ezetimibe 10 Mg Tablet PO 10 mg DAILY [facility] Administration Famotidine
--- NOTE | 2021-04-05 12:35 | WPDNEURCNPN ---
Assessment and Plan Additional Plan 1. Chronic pain syndrome for which pain medication will be continued as such 2. Ongoing anxiety with depression plan is to adjust the medication according Consult date: 04/05/21 HPI: Mango Mcgill Sr. is a 70 year old male admitted to the hospital for the multiple complaints and as per the review of the record he typically goes to [facility], he is unable to get out of the house to take care of the patient himself, ongoing history of nausea and vomiting about 3 days ago in addition to gallbladder issues he is known to have gallstones. He was also complaining of bloody stools, chest pain dizziness and orthostatic hypotension with passing out has been complaining of severe back pain severe headache. Initial CT scan done through the emergency room was negative with no acute bleed or space-occupying lesion his hemoglobin was 12.6 with hematocrit 33.6 sodium was 128 patient does have ongoing history of chronic renal failure with creatinine of 1.6 GFR of 43 EKG was in sinus rhythm with left anterior fascicular block and he does have a history of pacemaker in addition to the history of 12 stents in the past Review of Systems Review of Systems: All systems reviewed & are unremarkable except as noted in HPI and below PMFSH Past Medical History Medical History Anxiety and depression BPH (benign prostatic hyperplasia) CAD (coronary artery disease) Cataracts, bilateral Maturing unable to have the extracted at this time. Chest pain Chronic vertigo COPD (chronic obstructive pulmonary disease) Gallbladder disease Cholelithiasis without cholecystitis Generalized anxiety disorder With panic attacks Glaucoma Heart disease Heart failure following cardiac surgery History of syncope Hypertension Obstructive sleep apnea Refusing to wear the CPAP while in the hospital Surgical History Surgical History H/O heart artery stent The patient stated he has a history of 12 stents Family History Family History Sibling Heart disease Mother Heart disease Diabetes mellitus Social History Social History Social History: The patient stated that he lives home alone. His sister is a durable power case filler for healthcare. The patient has been disabled for 20-30 years. He has 2 children. The patient stated that he occasionally smokes cigarettes but he does not use any marijuana or alcohol or illicit drugs. The patient stated that he did try to use marijuana at 1 time but it did seem to help him. Code status full code Smoking packs per day: 0.5 Smoking cigarettes per day: 10.0 Years smoked: 50 Smoking pack-years: 25.00 Smoking status: Current every day smoker Tobacco type: cigarettes Second hand tobacco smoke exposure: No Alcohol intake: never Substance use: never Spiritual care concerns: No Meds Home Medications and Allergies Home Medications Medication Instructions Recorded Confirmed Type acyclovir 400 mg tablet 400 mg PO DIRECTED PRN 03/09/20 04/04/21 History aspirin 81 mg tablet,delayed 81 mg PO DAILY 03/09/20 04/04/21 History release clopidogrel 75 mg tablet 75 mg PO DAILY 03/09/20 04/04/21 History fluticasone 500 mcg-salmeterol 50 1 inh INHALATION Q12H 03/09/20 04/04/21 History mcg/dose blistr powdr for inhalation metoclopramide HCl 10 mg tablet 10 mg PO BID PRN 03/09/20 04/04/21 History timolol 0.5 % eye drops 1 drp OPHTHALMIC (EYE) Q12H 03/09/20 04/04/21 History tamsulosin 0.4 mg capsule 0.4 mg PO DAILY 08/13/20 04/04/21 History carisoprodol 350 mg tablet 350 mg PO TID #90 tablet 01/19/21 04/04/21 Rx fentanyl 75 mcg/hr transdermal 1 patch TRANSDERMAL Q72H #10 ea 03/21/21 04/04/21 Rx patch oxycodone 30 mg tablet 30 mg PO Q6H PRN #120 tablet 03/21/21
[2021-04-05] MEDS: SODIUM CHLORIDE 0.9% IV 1,000 ML 50 ML IV CONT (15:00)
--- NOTE | 2021-04-05 16:23 | PM.IMPN ---
Progress Note: A&P Assessment and Plan (1) Hyponatremia: Code(s): E87.1 - Hypo-osmolality and hyponatremia Status: Acute Assessment and Plan: Gently hydrate the patient. Recheck BMP in a few hours. Recheck BMP in the morning. The patient has a history of hyponatremia. I will attempt to get the records from [facility]. Check urine sodium and urine osmolality. Nephrology has been consulted. (2) Chest pain: Code(s): R07.9 - Chest pain, unspecified Status: Acute Assessment and Plan: Patient's troponin is negative at baseline and 3 hour. I put in for a 6 hour although it is late. The EKG was read as sinus rhythm left anterior fascicular block. Patient stated that he has had a history of having 12 stents in the past. When I looked at his heart monitor he had paced rhythm. Continue with aspirin and Plavix. (3) Chronic back pain: Code(s): M54.9 - Dorsalgia, unspecified; G89.29 - Other chronic pain Status: Acute Assessment and Plan: Continue with patient's home pain med. Continue with duloxetine (4) Hypertension: Code(s): I10 - Essential (primary) hypertension Status: Chronic Assessment and Plan: Continue with home medication. (5) Heart failure following cardiac surgery: Code(s): I97.130 - Postprocedural heart failure following cardiac surgery Status: Chronic Assessment and Plan: Continue with home medication. An echo. (6) Chronic vertigo: Code(s): R42 - Dizziness and giddiness Status: Chronic Assessment and Plan: Continue with home medication check orthostatic blood pressures. (7) Generalized anxiety disorder: Code(s): F41.1 - Generalized anxiety disorder Status: Chronic Assessment and Plan: Continue with paroxetine and duloxetine (8) BPH (benign prostatic hyperplasia): Code(s): N40.0 - Benign prostatic hyperplasia without lower urinary tract symptoms Status: Chronic Assessment and Plan: Continue with Flomax (9) Obstructive sleep apnea: Code(s): G47.33 - Obstructive sleep apnea (adult) (pediatric) Status: Chronic Assessment and Plan: Patient is refusing to use the CPAP that was ordered for him while in the hospital. (10) COPD (chronic obstructive pulmonary disease): Code(s): J44.9 - Chronic obstructive pulmonary disease, unspecified Status: Chronic Assessment and Plan: Patient still continues to smoke. We discussed smoking cessation for approximately 5 minutes. Continue with home medications. (11) Glaucoma: Code(s): H40.9 - Unspecified glaucoma Status: Chronic Assessment and Plan: Continue with eyedrops from home. (12) Gallbladder disease: Code(s): K82.9 - Disease of gallbladder, unspecified Status: Chronic Assessment and Plan: The patient stated he was recently hospitalized at [facility] which I am trying to get records for his last admission. The patient stated that he has cholelithiasis but he was told that they would not take his gallbladder out due to his multiple chronic diseases. Will continue to monitor liver enzymes and lipase. Patient stated that he had nausea and vomiting for 3 days. (13) Anxiety and depression: Code(s): F41.9 - Anxiety disorder, unspecified; F32.A - Depression, unspecified Status: Chronic Assessment and Plan: Continue home medications. (14) Headache: Qualifiers: Headache chronicity pattern: chronic headache Headache type: unspecified Intractability: not intractable Qualified Code(s): R51.9 - Headache, unspecified; G89.29 - Other chronic pain Code(s): R51.9 - Headache, unspecified Status: Acute Assessment and Plan: The patient sees Dr. Castillo the neurologist here. He has been consulted. Time Spent With Patient Time with patient: 25 - 35 minutes Subjective Date/time seen:
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
[2021-04-09 11:32] LABS: Osmolality, Urine 300 mOsm/kg (50-1200)
== END 2021-04-05 18:04 | disposition home or self-care (01) ==
LOC: ANHED 12:27 → ANHIMU 16:04
PROVIDERS: Nurse Practitioner; Admitting Provider Internal Medicine; Emergency Provider Emergency Medicine; PCP Nurse Practitioner Family; Visit Provider Physician Assistant
DX: E87.1 Hypo-osmolality and hyponatremia (principal); R07.9 Chest pain, unspecified; I12.9 Hypertensive chronic kidney disease with stage 1 through stage 4 chronic kidney disease, or unspecified chronic kidney disease; N18.32 Chronic kidney disease, stage 3b; G47.33 Obstructive sleep apnea (adult) (pediatric); F17.210 Nicotine dependence, cigarettes, uncomplicated; G89.29 Other chronic pain; H40.9 Unspecified glaucoma; K82.9 Disease of gallbladder, unspecified; R51.9 Headache, unspecified; D64.9 Anemia, unspecified; I25.10 Atherosclerotic heart disease of native coronary artery without angina pectoris; J44.9 Chronic obstructive pulmonary disease, unspecified; F41.8 Other specified anxiety disorders; M47.812 Spondylosis without myelopathy or radiculopathy, cervical region; M47.816 Spondylosis without myelopathy or radiculopathy, lumbar region; M54.9 Dorsalgia, unspecified; Z95.0 Presence of cardiac pacemaker; Z95.5 Presence of coronary angioplasty implant and graft
CPT/HCPCS: 36415; 70450; 71045; 72040; 72100; 76705; 76775; 80048; 80053; 81003; 83605; 83615; 83690; 83735; 83935; 84300; 84443; 84484; 85025; 85610; 85730; 86140; 93005; 93306; 94640; 96360; 96361; 97162; 99285; A9270; G0378; J7030

== ENCOUNTER 2021-08-18 10:01 | Outpatient (CLI) | payer MEDICARE, MEDICAID, SELFPAY ==
--- NOTE | ~2021-08-18 | NM_ITS ---
EXAMINATION: NM hepatobiliary wo pharm DATE: 08/18/2021 15:03 INDICATION: Disease of the gallbladder, unspecified. COMPARISON: CT abdomen and pelvis 11/04/2020 TECHNIQUE: 4.8 mCi Tc-99m mebrofenin (Choletec) was administered intravenously. Scintigraphic images of the abdomen were obtained for one hour. Delayed images were obtained at 4 hours. FINDINGS: There is normal clearance of radiotracer from the blood pool. There is homogeneous tracer u ptake by the liver. Activity progresses to the bowel at 50 minutes. There is activity in the gallbla dder at 4 hours. IMPRESSION: 1. No evidence of acute cholecystitis. Reviewed, dictated and finalized at location A.
== END 2021-08-18 10:02 | disposition home or self-care (01) ==
PROVIDERS: PCP Nurse Practitioner Family; Visit Provider Internal Medicine Gastroenterology
DX: K82.9 Disease of gallbladder, unspecified (principal)
CPT/HCPCS: 78226; A9537